=== PATIENT | female | born 1935 | race African-American/Black ===

== ENCOUNTER 2020-02-04 19:34 | Inpatient (IN) | payer OTHER ==
[~2020-02-04] VITALS: Ht 157.5 cm; Wt 44.0 kg
[~2020-02-04 19:34] MED LIST: ALLO100T PO; ASPI-1169 PO; ATEN50TA PO; ATOR40TA PO; CALC-838 PO; GLYB5TAB7 PO; HYDR-4077 PO; HYDR25TA4 PO; METF-440 PO
--- NOTE | 2020-02-04 19:38 | NUR ---
JACQUIE 889 FROM HOME FOR NECK, SHOULDER, BLE AND H/A S/P FALL 2 DAYS AGO. PT APEARS VERY DRY, pt to bed 9, awake, alert, -sob, placed on monitor. vss. pending md maldonado
[2020-02-04] MEDS ORDERED: IV NS 0.9% 1,000 ML IV ONE ×2 (20:00→21:30)
[2020-02-04 20:20] LABS: BASOPHILS # (AUTO) 0.1 /CMM (0.0-0.2); BASOPHILS % (AUTO) 0.6 % (0.0-2.0); EOSINOPHILS % (AUTO) 0.1 % (0.0-6.0); HEMATOCRIT 35 % (33-45); HEMOGLOBIN 11.5 g/dL (11.5-14.8); LYMPHOCYTES # (AUTO) 0.9 /CMM (0.8-4.8); LYMPHOCYTES % (AUTO) 6.5 % (20.0-44.0); MEAN CORPUSCULAR HGB CONC 33 g/dl (31.0-36.0); MEAN CORPUSCULAR VOLUME 96 fL (82-100); MONOCYTES # (AUTO) 0.8 /CMM (0.1-1.30); NEUTROPHILS # (AUTO) 11.6 /CMM (1.8-8.9); NEUTROPHILS % (AUTO) 86.8 % (43.0-81.0); PLATELET COUNT (AUTO) 382 /CMM (150-450); RED BLOOD CELL COUNT(AUTO) 3.64 MIL/uL (4.0-5.2); WHITE BLOOD COUNT (AUTO) 13.4 K/uL (4.3-11.0)
[2020-02-04 20:30] LABS: CALCIUM, SERUM 10.6 mg/dL (8.5-10.1); CARBON DIOXIDE 27 mmol/L (21-32); CHLORIDE 115 mmol/L (98-107); CREATININE 1.7 mg/dL (0.6-1.3); GLUCOSE 214 mg/dL (74-106); POTASSIUM 3.1 mmol/L (3.5-5.1); SODIUM SERUM 153 mmol/L (136-145); UREA NITROGEN, BLOOD 54 mg/dL (7-18)
[2020-02-04 20:36] LABS: ALANINE AMINOTRANSFERASE 34 U/L (12-78); ALBUMIN 2.7 g/dL (3.4-5.0); ALKALINE PHOSPHATASE 80 U/L (46-116); ASPARTATE AMINOTRANSFERASE 50 U/L (15-37); BILIRUBIN,DIRECT 0.2 mg/dL (0.0-0.2); BILIRUBIN,TOTAL 0.5 mg/dL (0.2-1.0); TOTAL PROTEIN, SERUM 8.6 g/dL (6.4-8.2)
[2020-02-04 20:46] LABS: MAGNESIUM 2.2 mg/dL (1.8-2.4)
--- NOTE | 2020-02-04 20:53 | NUR ---
urine collected and sent to lab
[2020-02-04 20:57] LABS: APPEARANCE,URINE Clear (CLEAR); BILIRUBIN,URINE SMALL (NEGATIVE); BLOOD, URINE Moderate Ery/uL (NEGATIVE); COLOR,URINE Orange (YELLOW); KETONES,URINE Trace (NEGATIVE); LEUKOCYTE ESTERASE ,URINE Negative (NEGATIVE); NITRITE, URINE Negative (NEGATIVE); PH,URINE 5.5 (5.0-8.0); PROTEIN,URINE >=300 mg/dl (NEGATIVE); UGLUCOSE Negative (NEGATIVE); UROBILINOGEN,URINE 0.2 EU/dL (0.2)
[2020-02-04 21:06] LABS: BACTERIA,URINE Many /HPF (None Seen)
[2020-02-04 21:07] LABS: SQUAMOUS EPITHELIAL CELL,UR Moderate /HPF (None Seen); URINE AMORPHOUS URATE Many /HPF (None Seen)
--- NOTE | 2020-02-04 21:22 | NUR ---
PAGED ISIDRA JONESP
--- NOTE | 2020-02-04 21:29 | NUR ---
VANDANA CHOWDHURY TALKING TO ISIDRA READ MD.
[2020-02-04] MEDS ORDERED: POTASSIUM CHLORIDE 20 MEQ TAB.PRT.SR PO ONE ×2 (21:30→22:09)
[2020-02-04] MEDS ORDERED: ASPIRIN 81 MG TAB.CHEW PO ONE (21:30)
--- NOTE | 2020-02-04 21:36 | NUR ---
PANEL PAGED PER ER MD ORDER.
--- NOTE | 2020-02-04 21:42 | NUR ---
VANDANA CHOWDHURY TALKING TO DR. JORDAN REGARDING PT ADMISSION.
--- NOTE | 2020-02-04 21:44 | NUR ---
AUTH #[id number] FOR ADMISSION PER DR. CERVANTES.
--- NOTE | 2020-02-04 21:54 | NUR ---
TELE 310-2
[2020-02-04] MEDS ORDERED: CEFTRIAXONE 1 G in IV D5W 50 ML IV SCH (22:00)
--- NOTE | 2020-02-04 22:06 | NUR ---
report given to hoda renteria for marilee pt will be transported to 3rd floor
[2020-02-04] MEDS ORDERED: ASPIRIN 81 MG TAB.CHEW ONE (22:09)
[2020-02-04] MEDS ORDERED: CEFTRIAXONE 1GM BAG (ER ONLY) 50 ML IV ONE (22:09)
[2020-02-04 22:20] VITALS: BP 144/67
[2020-02-04] MEDS ORDERED: MAG HYDROX/AL HYDROX/SIMETH 30 ML UDC PO PRN (22:30)
[2020-02-04] MEDS ORDERED: Z GUARD REMEDY 2 OZ OINT TP PRN (22:30)
[2020-02-04] MEDS ORDERED: ZOLPIDEM TARTRATE 5 MG TABLET PO PRN (22:30)
[2020-02-04] MEDS ORDERED: ONDANSETRON HCL/PF 4 MG/2 ML VIAL IVP PRN (22:30)
[2020-02-04] MEDS ORDERED: MAGNESIUM HYDROXIDE 30 ML UDC PO PRN (22:30)
[2020-02-04] MEDS ORDERED: ACETAMINOPHEN 325 MG TABLET PO PRN (22:30)
--- NOTE | 2020-02-04 22:30 | NUR ---
pt transported to 3rd floor
--- NOTE | 2020-02-04 22:31 | NUR ---
TELE/RN ADMITTING NOTES: RECEIVED REPORT AT 2206 FROM ER NURSE ABE. PATIENT ARRIVED TO THE UNIT AT 2220 IN STABLE CONDITION VIA GURNEY UNDER ACLS PROTOCOL. PT APPEARS TO BE ANXIOUS AND A/OX2. VERBALLY RESPONSIVE AND ABLE TO MAKE NEEDS KNOWN. PT IS NOT A GOOD HISTORIAN AND UNABLE TO ANSWER SOME QUESTIONS. SHOWS DELAY SPEECH. NEEDS TIME TO ANSWER WHEN ASKED. ORIENTED TO UNIT AND STAFF. NO SOB NOTED. NO S/S OF ACUTE DISTRESS. BREATHING EVEN AND UNLABORED. SATURATING AT 100% ON ROOM AIR. ON TELE MONITORING WITH READING OF NORMAL SR HR OF 70S. C/O ACHING PAIN ON HER BACK. IV SITE IS LOCATED ON THE RIGHT AC #20G. WITH ROCEPHIN AND NS IV FLUIDS RUNNING. SKIN ASSESSED THOROUGHLY. HAS BILATERAL LOWER EXTREMITIES DISCOLORATION AND HAS A SCAB ON THE RIGHT BUTTOCKS. SKIN INTACT, NO OPEN WOUNDS. NO REDNESS ON THE SACRUM AND HEELS, AND STANLEY PROMINENCE. ALL SKIN PICTURES DOCUMENTED IN [facility] CHART, STILL AWAITING FOR DR. JORDAN TO PLACE ORDERS. PT. ON BED REST AT THSI TIME, HAS WEAKNESS ON HER LOWER EXTREMITIES. PER PT, SHE USS [employer]ALK[employer] AN ASSISTIVE DEVICE. WHEN ASKED ABOUT WHAT BROUGHT HER IN THE HOSPITAL, PT. DOESN'T SEEM TO RECALL WHAT HAPPENED. PT. LIVES AT HOME BY HERSELF. BELONGINGS LIST CHECKED BY CLEIA DAVID. PT USES DENTURES AND GLASSES AT HOME. INITIAL VS TAKEN. TEMP:98.4 BP: 144/67 RR; 20. SAFETY PRECAUTIONS INITIATED. BED IN LOW, LOCKED POSITION WITH SR X2 UP. BED ALARM IS ON. CALL LIGHT WITHIN EASY REACH. TABLE AT BEDSIDE. WILL KEEP MONITORING PT. ACCORDINGLY.
--- NOTE | 2020-02-04 22:45 | NUR ---
TELE/RN NOTES: SPOKEN TO DR. JORDAN, AND GAVE UPDATES ABOUT PT'S CURRENT CONDITION. PT IS NOT A GOOD HISTORIAN. CURRENT BP 144/67. PER JULIAN "CONTINUE ORDERED FLUIDS. MONITOR PT." WILL CONTINUE MONITORING.
--- NOTE | 2020-02-04 22:50 | NUR ---
TELE/RN NOTES: ASKED PT. FOR MEDICAL AND SURGICAL HISTORY. PER PT, SHE DOES NOT HAVE ANY SURGICAL HISTORIES.
--- NOTE | 2020-02-04 23:08 | NUR ---
TELE/RN NOTES: ROCEPHIN 1G IV [address] CERVANTES SCHEDULED FOR 0 WAS ALREADY ADMINISTERED IN ER BY SONYA FISH.
[2020-02-04] MEDS: IV NS 0.9% 1,000 ML IV SCH (23:22)
[2020-02-04] MEDS: HYDROCODONE/APAP 5/325MG 1 EACH TABLET PO PRN (23:26)
--- NOTE | 2020-02-04 23:36 | NUR ---
TELE/RN NOTES: PT COMPLAINED OF BACK PAIN, QUALITY OF PRESSURE AND ACHING. RATES IT 9 OUT OF 0-10. ADMINISTERED NORCO 5/325MG PO. TOLERATED WELL. VSS. WILL CONTINUE TO MONITOR AND REASSESS.
[2020-02-05] VITALS: BP 161/82
[2020-02-05 01:00] VITALS: BP 152/80
--- NOTE | 2020-02-05 01:09 | NUR ---
TELE/RN NOTES: VTE SCORE OF 3. ORDERED DVT PUMPS. HOWEVER, THERE IS NO AVAILABLE DVT PUMP AT THIS TIME. WILL ENDORSE TO DAY SHIFT TO REMIND [facility] FIRST THING IN THE MORNING.
--- NOTE | 2020-02-05 02:25 | NUR ---
TELE/RN NOTES: SPOKE TO DR. JORDAN REGARDING PT'S DVT SCORE OF 3. RECEIVED AN ORDER OF LOVENOX 30MG SUBCUTANEOUS Q24HRS.
[2020-02-05 04:00] VITALS: BP_SYST 145; BP_SYST 146; BP_DIAS 75
--- NOTE | 2020-02-05 07:14 | NUR ---
TELE/RN NOTES: CALLED [facility] FOR DVT PUMP MACHINE. WAITING TO BE BROUGHT UP TO THE UNIT. WILL LET THE NEXT SHIFT RN KNOW.
--- NOTE | 2020-02-05 07:48 | NUR ---
TELE/RN CLOSING NOTES: PLAN OF CARE ENDORSED TO NEXT SHIFT RN. PT. REMAINS A/OX2. VERBALLY RESPONSIVE AND ABLE TO MAKE NEEDS KNOWN. NO SOB NOTED. NO S/S OF ACUTE DISTRESS. BREATHING EVEN AND UNLABORED. SATURATING AT 100% ON ROOM AIR. ON TELE MONITORING WITH READING OF NORMAL SR HR OF 70S. NO C/O PAIN AT THIS TIME. IV SITE IS LOCATED ON THE RIGHT AC #20G. WITH NS IV FLUIDS RUNNING AT 100ML/HR. SAFETY PRECAUTIONS IN PLACE. BED IN LOW, LOCKED POSITION WITH SR X2 UP. BED ALARM IS ON. CALL LIGHT WITHIN EASY REACH. TABLE AT BEDSIDE.
--- NOTE | 2020-02-05 07:55 | NUR ---
ms rn received on bed, awake,alert,oriented x2,confuse a times, abdomen soft.positive bowel sounds,denies pain at this time, will monitor patient.
[2020-02-05 08:00] VITALS: BP 185/82
[2020-02-05 08:38] LABS: BASOPHILS % (AUTO) 0.2 % (0.0-2.0); EOSINOPHILS % (AUTO) 0.1 % (0.0-6.0); HEMATOCRIT 32 % (33-45); HEMOGLOBIN 10.3 g/dL (11.5-14.8); LYMPHOCYTES # (AUTO) 1.6 /CMM (0.8-4.8); LYMPHOCYTES % (AUTO) 12.1 % (20.0-44.0); MEAN CORPUSCULAR HGB CONC 32 g/dl (31.0-36.0); MEAN CORPUSCULAR VOLUME 97 fL (82-100); MONOCYTES # (AUTO) 0.8 /CMM (0.1-1.30); MONOCYTES % (AUTO) 6.1 % (2.0-12.0); NEUTROPHILS # (AUTO) 10.8 /CMM (1.8-8.9); NEUTROPHILS % (AUTO) 81.5 % (43.0-81.0); PLATELET COUNT (AUTO) 323 /CMM (150-450); RED BLOOD CELL COUNT(AUTO) 3.36 MIL/uL (4.0-5.2); WHITE BLOOD COUNT (AUTO) 13.3 K/uL (4.3-11.0)
[2020-02-05 08:43] LABS: CALCIUM, SERUM 9.5 mg/dL (8.5-10.1); CREATININE 1.3 mg/dL (0.6-1.3); MAGNESIUM 2.1 mg/dL (1.8-2.4)
[2020-02-05 08:44] LABS: C-REACTIVE PROTEIN 13.1 mg/dL (0.0-0.9)
[2020-02-05] MEDS ORDERED: HYDROCHLOROTHIAZIDE 25 MG TABLET PO SCH (09:00)
[2020-02-05] MEDS ORDERED: ASPIRIN 81 MG TAB.CHEW PO SCH (09:00)
[2020-02-05] MEDS ORDERED: CHOLECALCIFEROL 1,000 UNIT TABLET (VIT D3) PO SCH (09:00)
[2020-02-05] MEDS ORDERED: hydrALAZINE HCL 50 MG TABLET PO SCH (09:00)
[2020-02-05] MEDS ORDERED: ATORVASTATIN 40 MG TABLET PO SCH (09:00)
[2020-02-05] MEDS ORDERED: ENOXAPARIN SODIUM 30 MG/0.3 ML DISP.SYRIN SQ SCH (09:00)
[2020-02-05] MEDS: IV NS 0.9% 1,000 ML IV SCH (09:12)
[2020-02-05] MEDS: ATENOLOL 50 MG TABLET PO SCH ×2 (09:16→17:17)
[2020-02-05] MEDS: glyBURIDE 5 MG TABLET PO SCH ×2 (09:27→17:16)
[2020-02-05] MEDS: METFORMIN 500 MG TABLET PO SCH ×2 (09:27→17:16)
--- NOTE | 2020-02-05 09:50 | NUR ---
ms renteria breakfast served,due meds given, tolerated well.
[2020-02-05] MEDS ORDERED: ENOXAPARIN SODIUM 40 MG/0.4 ML DISP.SYRIN SQ SCH (10:30)
--- NOTE | 2020-02-05 11:20 | NUR ---
ms dexter was seen by prabhjot bernal/ orders made and carried out.
[2020-02-05] MEDS: hydrALAZINE HCL 50 MG TABLET PO SCH ×2 (12:00→17:00)
[2020-02-05] MEDS: HYDROCODONE/APAP 5/325MG 1 EACH TABLET PO PRN (12:42)
--- NOTE | 2020-02-05 14:00 | NUR ---
ms rn called eusebiokyra for ct angio consent, did not gave consent not unless speak w/ doctor.
[2020-02-05 16:00] VITALS: BP 118/55
--- NOTE | 2020-02-05 16:00 | NUR ---
ms rn was seen by doctor eisenberg w/ orders made and carried out.
--- NOTE | 2020-02-05 17:00 | NUR ---
ms dexter cook called regarding transfer for [facility].
--- NOTE | 2020-02-05 19:00 | NUR ---
ms rn patient ready for transfer, called up daughter for updates, all needs attended.
[2020-02-05 20:09] VITALS: BP 132/78
--- NOTE | 2020-02-05 20:10 | NUR ---
RN NOTES RECEIVED PATIENT AWAKE ALERT ORIENTEDX2, BREATHING EVEN AND UNLABORED. NO SIGNS OF ACUTE CARDIAC OR RESPIRATORY DISTRESS NOTED. SAFETY MEASURES IN PLACE, CALL LIGHT WITH IN EASY REACH. REPOSITIONED FOR COMFORT. PERIPHERAL IV LINE ON HER RIGHT AC G#20 INTACT AND PATENT. ASPIRATION PRECAUTION EMPHASIZED. ALL NEEDS ATTENDED. ALL PAPER WORK SECURED, READY FOR [facility] TO [facility]. AM NURSE SONYA KATZ CALLED AND INFORMED THE DAUGHTER. REPORT GIVEN TO LUCERNEMINES NURSE. AWAITING FOR GROUND IN[employer].
--- NOTE | 2020-02-05 20:21 | NUR ---
RN NOTES PATIENT LEFT THE UNIT AT 2019 IN STABLE CONDITION, BP 132/78, HR64, RR20, TEMP 97.8 SATING 100% ON ROOM AIR. VIA PRN PARAMEDICS. ALL NEEDS ATTENDED, CHARGE NURSE SONYA FREED AWARE OF DISCHARGE.
== END 2020-02-05 20:20 | disposition short-term general hospital (02) | DRG 682 ==
LOC: ER 19:36 → TELE 21:51
PROVIDERS: ADMIT Family Medicine; ATTEND Nurse Practitioner Acute Care
DX: N17.0 Acute kidney failure with tubular necrosis (principal); I21.A1 Myocardial infarction type 2; E87.0 Hyperosmolality and hypernatremia; E44.0 Moderate protein-calorie malnutrition; N39.0 Urinary tract infection, site not specified; I12.9 Hypertensive chronic kidney disease with stage 1 through stage 4 chronic kidney disease, or unspecified chronic kidney disease; N18.9 Chronic kidney disease, unspecified; E86.0 Dehydration; E11.22 Type 2 diabetes mellitus with diabetic chronic kidney disease; E87.6 Hypokalemia; Z88.8 Allergy status to other drugs, medicaments and biological substances; Z79.84 Long term (current) use of oral hypoglycemic drugs; Z79.82 Long term (current) use of aspirin; Z79.899 Other long term (current) drug therapy; E86.1 Hypovolemia; M47.816 Spondylosis without myelopathy or radiculopathy, lumbar region; M46.46 Discitis, unspecified, lumbar region; D72.829 Elevated white blood cell count, unspecified; M85.80 Other specified disorders of bone density and structure, unspecified site; E78.5 Hyperlipidemia, unspecified; E11.65 Type 2 diabetes mellitus with hyperglycemia; M10.9 Gout, unspecified; D64.9 Anemia, unspecified; W18.30XA Fall on same level, unspecified, initial encounter; Y92.009 Unspecified place in unspecified non-institutional (private) residence as the place of occurrence of the external cause
CPT/HCPCS: 36415; 70450-TC; 71045-TC; 72074-TC; 72100-TC; 72125-TC; 72190-TC; 73030-TC; 76770-TC; 80048-TC; 80061-TC; 80076-TC; 81000-TC; 82550-TC; 82962-TC; 83605-TC; 83735-TC; 84100-TC; 84484-TC; 85025-TC; 85652-TC; 85730-TC; 86140-TC; 87040-TC; 87081-TC; 87086-TC; 93307-TC; G0378; J0696; J1650; J7030; J7060

== ENCOUNTER 2024-09-10 11:55 | Emergency (ER) | payer OTHER, MEDICAID ==
[~2024-09-10] VITALS: Ht 167.6 cm; Wt 68.0 kg
[2024-09-10 13:09] LABS: BASOPHILS % (AUTO) 0.6 % (0.0-2.0); EOSINOPHILS # (AUTO) 0.1 K/uL (0.0-0.7); EOSINOPHILS % (AUTO) 2.2 % (0.0-6.0); HEMATOCRIT 28 % (33-45); LYMPHOCYTES # (AUTO) 1.9 K/uL (0.8-4.8); LYMPHOCYTES % (AUTO) 29.1 % (20.0-44.0); MEAN CORPUSCULAR HEMOGLOBIN 29 PG (26.0-33.0); MEAN CORPUSCULAR HGB CONC 32 g/dl (31.0-36.0); MEAN CORPUSCULAR VOLUME 91 fL (82-100); MONOCYTES # (AUTO) 0.5 K/uL (0.1-1.30); MONOCYTES % (AUTO) 7.7 % (2.0-12.0); NEUTROPHILS % (AUTO) 60.4 % (43.0-81.0); PLATELET COUNT (AUTO) 309 K/uL (150-450); RED CELL DISTRIBUTION WIDTH 18.8 % (11.5-15.0); WHITE BLOOD COUNT (AUTO) 6.5 K/uL (4.3-11.0)
[2024-09-10 13:20] LABS: CALCIUM, SERUM 9.1 mg/dL (8.5-10.1); CARBON DIOXIDE 24 mmol/L (21-32); CHLORIDE 104 mmol/L (98-107); GLUCOSE 277 mg/dL (74-106); POTASSIUM 4.8 mmol/L (3.5-5.1); SODIUM SERUM 135 mmol/L (136-145); UREA NITROGEN, BLOOD 23 mg/dL (7-18)
[2024-09-10 13:31] LABS: INR 1.03 (0.91-1.10); PARTIAL THROMBOPLASTIN TIME 26.6 SEC (24.3-34.3); PROTHROMBIN TIME 10.9 SECS (9.2-11.1)
[2024-09-10 13:36] LABS: ALANINE AMINOTRANSFERASE 14 U/L (12-78); ALKALINE PHOSPHATASE 116 U/L (46-116); ASPARTATE AMINOTRANSFERASE 17 U/L (15-37); BILIRUBIN,TOTAL 0.2 mg/dL (0.2-1.0); NT-PRO BNP 1371 pg/mL (0-125); TOTAL PROTEIN, SERUM 8.3 g/dL (6.4-8.2)
[2024-09-10 13:46] LABS: BILIRUBIN,DIRECT 0.1 mg/dL (0.0-0.2)
[2024-09-10 16:30] VITALS: BP 129/57; TEMP 98.3; O2SAT 97
== END 2024-09-10 16:37 ==
LOC: ER 11:55
DX: I13.0 Hypertensive heart and chronic kidney disease with heart failure and stage 1 through stage 4 chronic kidney disease, or unspecified chronic kidney disease (principal); I50.9 Heart failure, unspecified; N18.9 Chronic kidney disease, unspecified; E11.22 Type 2 diabetes mellitus with diabetic chronic kidney disease; E11.65 Type 2 diabetes mellitus with hyperglycemia; E88.09 Other disorders of plasma-protein metabolism, not elsewhere classified; D63.1 Anemia in chronic kidney disease; Z79.82 Long term (current) use of aspirin; Z79.84 Long term (current) use of oral hypoglycemic drugs; Z79.899 Other long term (current) drug therapy
CPT/HCPCS: 36415; 71045-TC; 80048-TC; 80076-TC; 83880; 85025-TC; 85730-TC; 93970-TC